=== PATIENT | male | born 1985 | race Caucasian/White ===

== ENCOUNTER 2019-07-12 08:28 | Emergency (ER) | payer OTHER ==
[~2019-07-12] VITALS: Ht 182.9 cm; Wt 111.4 kg
[2019-07-12 09:04] LABS: BASO # 0.1 10^3/uL (0.0-0.2); BASO % 1.3 % (0.0-1.0); EOS # 0.1 10^3/uL (0.0-0.5); EOS % 1.4 % (0.0-3.0); HEMATOCRIT 43.4 % (42.0-52.0); HEMOGLOBIN 13.8 g/dl (13.5-17.5); LYMPH # 1.8 10^3/uL (1.5-5.0); LYMPH % 20.7 % (24.0-44.0); MEAN CORPUSCULAR HEMOGLOBIN 27.5 pg (27.0-33.0); MEAN CORPUSCULAR HGB CONC 31.8 g/dl (32.0-36.5); MEAN CORPUSCULAR VOLUME 86.5 fl (80.0-96.0); MONO # 0.5 10^3/uL (0.0-0.8); MONO % 5.4 % (0.0-5.0); NEUTROPHILS # 6.1 10^3/uL (1.5-8.5); NEUTROPHILS % 70.7 % (36.0-66.0); PLATELET COUNT, AUTOMATED 286 10^3/uL (150-450); RED BLOOD COUNT 5.02 10^6/uL (4.30-6.10); WHITE BLOOD COUNT 8.6 10^3/uL (4.0-10.0)
[2019-07-12 09:34] LABS: BLOOD UREA NITROGEN 14 MG/DL (7-18); CALCIUM LEVEL 8.9 MG/DL (8.5-10.1); CARBON DIOXIDE LEVEL 28 MEQ/L (21-32); CHLORIDE LEVEL 107 MEQ/L (98-107); CK-MB VALUE MASS 1.3 NG/ML (<3.6); CPK CREATINE PHOSPHOKINASE 230 U/L (39-308); CREATININE FOR GFR 1.04 MG/DL (0.70-1.30); GLOMERULAR FILTRATION RATE > 60.0 (>60); GLUCOSE, FASTING 105 MG/DL (70-100); MB/CK RELATIVE INDEX 0.57 (< OR =4); POTASSIUM SERUM 4.6 MEQ/L (3.5-5.1); SODIUM LEVEL 140 MEQ/L (136-145); TROPONIN I < 0.02 NG/ML (< 0.10)
[2019-07-12] MEDS ORDERED: MECLIZINE 25 MG TABLET PO ONE (10:00)
[2019-07-12] MEDS ORDERED: NS 1,000 ML IV ONE ×2 (10:00→12:45)
[2019-07-12 10:02] LABS: ALBUMIN 3.8 GM/DL (3.2-5.2); ALT/SGPT 34 U/L (12-78); BILIRUBIN,TOTAL 0.4 MG/DL (0.2-1.0); LIPASE 79 U/L (73-393); TOTAL PROTEIN 7.5 GM/DL (6.4-8.2)
--- NOTE | 2019-07-12 10:15 | REP ---
CHEST, TWO VIEWS: There is no evidence of acute infiltrate. No pleural effusion is seen. The heart is normal in size. The mediastinal silhouette is unremarkable. The visualized osseous structures are intact. IMPRESSION: No acute pulmonary disease. Electronically Signed by Fabricio Kebede MD 07/12/2019 04:20 P
--- NOTE | 2019-07-12 10:35 | REP ---
CT brain: 07/12/2019. Indication: Ataxia. Stroke. Comparison: None. Technique: Unenhanced axial CT images of the brain were obtained from skull base to vertex. Findings: There is no acute intracranial hemorrhage, acute cortical infarction, mass effect, hydrocephalus or significant fluid within the visualized paranasal sinuses/mastoid air cells. Impression: No acute intracranial process. Electronically Signed by Raad Alvarez DO 07/12/2019 10:27 A
--- NOTE | 2019-07-12 13:35 | REP ---
MRI brain and intracranial MRA: 07/12/2019. Vacation: Ataxia. Stroke. Comparison: None. Technique: Multiplanar short and long TR sequences of the brain were performed as well as 3-D [id number] imaging of the intracranial circulation. Findings: There are no areas of restricted diffusion. There is no intracranial mass effect, hydrocephalus or significant hemorrhage. No areas of abnormal signal are present within the brainstem or brain parenchyma. The large intracranial flow voids are unremarkable. The midline structures, and craniocervical junction are also unremarkable. There is no intracranial high-grade stenosis, vessel occlusion, aneurysm or AVM. Impression: No acute intracranial process. Unremarkable brain. No intracranial high-grade stenosis or occlusion. Unremarkable intracranial MRA. Electronically Signed by Raad Alvarez DO 07/12/2019 01:27 P
--- NOTE | 2019-07-12 13:35 | REP ---
MRI brain and intracranial MRA: 07/12/2019. Vacation: Ataxia. Stroke. Comparison: None. Technique: Multiplanar short and long TR sequences of the brain were performed as well as 3-D [id number] imaging of the intracranial circulation. Findings: There are no areas of restricted diffusion. There is no intracranial mass effect, hydrocephalus or significant hemorrhage. No areas of abnormal signal are present within the brainstem or brain parenchyma. The large intracranial flow voids are unremarkable. The midline structures, and craniocervical junction are also unremarkable. There is no intracranial high-grade stenosis, vessel occlusion, aneurysm or AVM. Impression: No acute intracranial process. Unremarkable brain. No intracranial high-grade stenosis or occlusion. Unremarkable intracranial MRA. Electronically Signed by Raad Alvarez DO 07/12/2019 01:26 P
[2019-07-12] MEDS ORDERED: MECL-68 PO (14:01)
[2019-07-12] MEDS ORDERED: ZOFR4TAB16 PO (14:02)
[2019-07-12 14:15] VITALS: BP 125/73
--- NOTE | 2019-07-13 21:56 | ECGEPIP ---
[facility] - ED Test Date: 2019-07-12 Pat Name: NATALIA OLSEN Department: Room: - Gender: Male Clinical Social Work Aide: TC : 1985 Requested By: REY Bai Order Number: [id number] Reading MD: Mare Matt Measurements Intervals Ducor Rate: 55 P: 56 RI: 207 QRS: 29 QRSD: 104 T: 8 QT: 433 QTc: 415 Interpretive Statements SINUS BRADYCARDIA EARLY REPOLARIZATION NO PRIOR Electronically Signed on 07-13-2019 21:56:17 EST by Mare Matt
== END 2019-07-12 14:18 | disposition home or self-care (01) ==
LOC: EDBD 08:28 → M ED 08:28
DX: R42 Dizziness and giddiness (principal); R11.2 Nausea with vomiting, unspecified; R00.1 Bradycardia, unspecified

== ENCOUNTER 2020-09-27 15:21 | Inpatient (IN) | payer OTHER ==
[~2020-09-27] VITALS: Ht 182.9 cm; Wt 126.1 kg
[~2020-09-27 15:21] MED LIST: MECL1TAB31 PO; ZOFR4TAB16 PO
[2020-09-27 16:23] LABS: HEMATOCRIT 44.7 % (42.0-52.0); HEMOGLOBIN 14.1 g/dl (13.5-17.5); MEAN CORPUSCULAR HEMOGLOBIN 27.3 pg (27.0-33.0); MEAN CORPUSCULAR HGB CONC 31.5 g/dl (32.0-36.5); MEAN CORPUSCULAR VOLUME 86.6 fl (80.0-96.0); PLATELET COUNT, AUTOMATED 337 10^3/uL (150-450); RED BLOOD COUNT 5.16 10^6/uL (4.30-6.10); WHITE BLOOD COUNT 7.3 10^3/uL (4.0-10.0)
[2020-09-27 16:44] LABS: AMPHETAMINES LEVEL URINE NEGATIVE (NEGATIVE); BARBITURATES URINE NEGATIVE (NEGATIVE); BENZODIAZEPINES URINE NEGATIVE (NEGATIVE); CANNABINOIDS URINE NEGATIVE (NEGATIVE); COCAINE METABOLITE URINE NEGATIVE (NEGATIVE); METHADONE URINE NEGATIVE (NEGATIVE); OPIATES URINE NEGATIVE (NEGATIVE); PHENCYCLIDINE URINE NEGATIVE (NEGATIVE)
[2020-09-27 17:01] LABS: ACETAMINOPHEN LEVEL < 2.0 UG/ML (10.0-30.0); ALT/SGPT 55 U/L (12-78); BILIRUBIN,DIRECT 0.1 MG/DL (0.0-0.2); BILIRUBIN,TOTAL 0.3 MG/DL (0.2-1.0); BLOOD UREA NITROGEN 15 MG/DL (7-18); CALCIUM LEVEL 9.1 MG/DL (8.5-10.1); CARBON DIOXIDE LEVEL 26 MEQ/L (21-32); CHLORIDE LEVEL 107 MEQ/L (98-107); CREATININE FOR GFR 1.09 MG/DL (0.70-1.30); ETHYL ALCOHOL (ETHANOL) < 0.003 % (0.000-0.010); GLOMERULAR FILTRATION RATE > 60.0 (>60); GLUCOSE, FASTING 100 MG/DL (70-100); POTASSIUM SERUM 4.1 MEQ/L (3.5-5.1); SALICYLATE LEVEL < 1.7 MG/DL (5.0-30.0); SODIUM LEVEL 141 MEQ/L (136-145); TOTAL PROTEIN 7.9 GM/DL (6.4-8.2)
[2020-09-27] MEDS ORDERED: ACETAMINOPHEN TAB 650MG DOSE (2X325MG) PO PRN (19:25)
[2020-09-27] MEDS ORDERED: MOM 30ML SUSPENSION UDC PO PRN (19:25)
[2020-09-27] MEDS ORDERED: MAALOX 30 ML SUSP *UDC PO PRN (19:25)
[2020-09-27 20:47] LABS: RSV AMPLIFICATION NEGATIVE (NEGATIVE)
[2020-09-27 21:27] VITALS: BP 140/87
[2020-09-28 06:28] VITALS: BP 136/74
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
[2020-09-28 17:17] VITALS: BP 142/76
[2020-09-29 05:54] VITALS: BP 132/68
[2020-09-29 16:41] VITALS: BP 117/71
--- NOTE | 2020-09-29 16:55 | MHIPNPDOC ---
[facility] Progress Note Progress Note DATE OF SERVICE: 09/29/20 HISTORY: 35-year-old male with depression and marital difficulties. VITAL SIGNS: See below. NEW TEST RESULTS: None. CURRENT MEDICATIONS: See below. MENTAL STATUS EXAMINATION: Patient is a, 35-year old male, who is having marital difficulties and became depressed and suspicious. Speech: Is within normal limits. Language skills . No gross disturbance Thought processes including:. No gross disturbance. Thought content: Thinking about his marriage. Abstract reasoning, and computation: Able to abstract and compute. Description of associations: No loose association. Description of abnormal or psychotic thoughts:. No psychotic thought. Judgment: Good. Insight:. Good. Orientation: 3. Recent and remote memory:. No disturbance. Attention span and concentration:. No disturbance. Language:. No gross disturbance. Fund of knowledge: Reasonable. Mood: Good. Affect: BRight. DIAGNOSES: 1. Situational depression. 2., Marital stressors. 3. ASSESSMENT: As above MANAGEMENT PLAN:. Plan discharge. TIME SPENT: 35 minutes. Vital Signs Vital Signs Date Time Temp Pulse Resp B/P (MAP) Pulse Ox O2 Delivery O2 Flow Rate FiO2 09/29/20 16:41 97.2 88 18 117/71 (86) 97 Room Air Current Medications Current Medications Medications (Trade) Dose Ordered Sig/Wilmer Route PRN Reason Start Time Stop Time Status Last Admin Dose Admin Acetaminophen (Tylenol Tab) 650 mg Q6HP PRN PO HEADACHE or DISCOMFORT 09/27/20 19:25 Al Hydrox/Mg Hydrox/Simethicone (Mylanta) 30 ml Q4HP PRN PO HEARTBURN/INDIGESTION 09/27/20 19:25 Home Med (Med Rec Complete!) ASDIRECTED XX 09/27/20 18:00 09/27/20 18:00 DC Magnesium Hydroxide (Milk Of Magnesia) 30 ml DAILYPRN PRN PO CONSTIPATION 09/27/20 19:25 Trazodone HCl (Desyrel) 50 mg QHSP PRN PO INSOMNIA 09/27/20 19:25 Allergies Coded Allergies: No Known Allergies (Unverified , 07/12/19) NATALIA HERNANDEZ MD Sep 29, 2020 16:55
[2020-09-30 06:31] VITALS: BP 127/77
[2020-09-30 16:17] VITALS: BP 130/74
--- NOTE | 2020-09-30 19:22 | MHIPNPDOC ---
[facility] Progress Note Progress Note DATE OF SERVICE: 09/30/20 HISTORY: 35-year-old male with depression and marital difficulties. VITAL SIGNS: See below. NEW TEST RESULTS: None. CURRENT MEDICATIONS: See below. MENTAL STATUS EXAMINATION: Patient is a, 35-year old male, who is having marital difficulties and became depressed and suspicious. Speech: normal in r/t/v, spontaneous and fluent Language skills . No gross disturbance Thought processes including: Linear and coherent Thought content: Reports anxious thoughts, depressive thoughts, he denies suicidal ideation at this time. Abstract reasoning, and computation: Able to abstract and compute. Description of associations: No loose association. Description of abnormal or psychotic thoughts:. Denies thought delusions, denies TAV hallucinations, he is not responding to internal stimuli Judgment: Good. Insight:. Good. Orientation: 3. Recent and remote memory:. No disturbance. Attention span and concentration:. No disturbance. Language:. No gross disturbance. Fund of knowledge: Reasonable. Mood: " Relaxed and good." Affect: Bright. DIAGNOSES: 1. Situational depression. 2. Marital stressors. ASSESSMENT: As above MANAGEMENT PLAN:. Continue with current treatment plan, he seems to be ready for discharge. TIME SPENT: 35 minutes. Vital Signs Vital Signs Date Time Temp Pulse Resp B/P (MAP) Pulse Ox O2 Delivery O2 Flow Rate FiO2 09/30/20 16:17 98.8 79 16 130/74 (92) 94 Room Air Current Medications Current Medications Medications (Trade) Dose Ordered Sig/Wilmer Route PRN Reason Start Time Stop Time Status Last Admin Dose Admin Acetaminophen (Tylenol Tab) 650 mg Q6HP PRN PO HEADACHE or DISCOMFORT 09/27/20 19:25 Al Hydrox/Mg Hydrox/Simethicone (Mylanta) 30 ml Q4HP PRN PO HEARTBURN/INDIGESTION 09/27/20 19:25 Home Med (Med Rec Complete!) ASDIRECTED XX 09/27/20 18:00 09/27/20 18:00 DC Magnesium Hydroxide (Milk Of Magnesia) 30 ml DAILYPRN PRN PO CONSTIPATION 09/27/20 19:25 Trazodone HCl (Desyrel) 50 mg QHSP PRN PO INSOMNIA 09/27/20 19:25 Allergies Coded Allergies: No Known Allergies (Unverified , 07/12/19) KRAIG MANNING MD Sep 30, 2020 19:22
[2020-10-01 06:37] VITALS: BP 120/60
--- NOTE | 2020-10-01 15:07 | MHIPNPDOC ---
[facility] Progress Note Progress Note DATE OF SERVICE: 10/01/20 HISTORY: 35-year-old male with depression and marital difficulties. VITAL SIGNS: See below. NEW TEST RESULTS: None. CURRENT MEDICATIONS: See below. MENTAL STATUS EXAMINATION: Patient is a, 35-year old male, who is having marital difficulties and became depressed and suspicious. Speech: normal in r/t/v, spontaneous and fluent Language skills . No gross disturbance Thought processes including: Linear and coherent Thought content: Denies anxious or depressive thoughts, he denies suicidal ideation at this time. Abstract reasoning, and computation: Able to abstract and compute. Description of associations: No loose association. Description of abnormal or psychotic thoughts:. Denies thought delusions, denies TAV hallucinations, he is not responding to internal stimuli Judgment: Good. Insight:. Good. Orientation: 3. Recent and remote memory:. No disturbance. Attention span and concentration:. No disturbance. Language:. No gross disturbance. Fund of knowledge: Reasonable. Mood: "Good." Affect: Bright. DIAGNOSES: 1. Situational depression. 2. Marital stressors. ASSESSMENT: As above MANAGEMENT PLAN: Continue with current treatment plan, he is having a good response to medications, he seems to be ready for discharge. TIME SPENT: 35 minutes. Vital Signs Vital Signs Date Time Temp Pulse Resp B/P (MAP) Pulse Ox O2 Delivery O2 Flow Rate FiO2 10/01/20 06:37 97.7 60 18 120/60 (80) 96 Room Air Current Medications Current Medications Medications (Trade) Dose Ordered Sig/Wilmer Route PRN Reason Start Time Stop Time Status Last Admin Dose Admin Acetaminophen (Tylenol Tab) 650 mg Q6HP PRN PO HEADACHE or DISCOMFORT 09/27/20 19:25 Al Hydrox/Mg Hydrox/Simethicone (Mylanta) 30 ml Q4HP PRN PO HEARTBURN/INDIGESTION 09/27/20 19:25 Home Med (Med Rec Complete!) ASDIRECTED XX 09/27/20 18:00 09/27/20 18:00 DC Magnesium Hydroxide (Milk Of Magnesia) 30 ml DAILYPRN PRN PO CONSTIPATION 09/27/20 19:25 Trazodone HCl (Desyrel) 50 mg QHSP PRN PO INSOMNIA 09/27/20 19:25 Allergies Coded Allergies: No Known Allergies (Unverified , 07/12/19) KRAIG MANNING MD 7, 2021 15:07
[2020-10-01 16:15] VITALS: BP 127/73
[2020-10-01] MEDS: traZODone 50 MG TAB PO PRN (22:13)
[2020-10-02 06:52] VITALS: BP 124/81
--- NOTE | 2020-10-02 14:46 | MHIPNPDOC ---
[facility] Progress Note Progress Note DATE OF SERVICE: 10/02/20 HISTORY: 35-year-old male with depression due to marital difficulties. VITAL SIGNS: See below. NEW TEST RESULTS: None. CURRENT MEDICATIONS: See below. MENTAL STATUS EXAMINATION: Patient is a 35-year-old male in improved mood. Speech: Is. No gross disturbance. Language skills are intact. Thought processes including:. No gross disturbance. Thought content: As above. Abstract reasoning, and computation: Present. Description of associations:. No loose association. Description of abnormal or psychotic thoughts:. No psychotic thought. Judgment: Intact. Insight: Fair. Orientation: 3. Recent and remote memory: Intact. Attention span and concentration:. No disturbance. Language:. No disturbance. Fund of knowledge: Reasonable. Mood: Improved. Affect: bright. DIAGNOSES: 1. Situational depression. 2., Marital stressors. 3., None. ASSESSMENT: As above MANAGEMENT PLAN: Discharge plan. TIME SPENT:. 35 minutes. Vital Signs Vital Signs Date Time Temp Pulse Resp B/P (MAP) Pulse Ox O2 Delivery O2 Flow Rate FiO2 10/02/20 06:52 97.9 65 16 124/81 (95) 98 Room Air Current Medications Current Medications Medications (Trade) Dose Ordered Sig/Wilmer Route PRN Reason Start Time Stop Time Status Last Admin Dose Admin Acetaminophen (Tylenol Tab) 650 mg Q6HP PRN PO HEADACHE or DISCOMFORT 09/27/20 19:25 Al Hydrox/Mg Hydrox/Simethicone (Mylanta) 30 ml Q4HP PRN PO HEARTBURN/INDIGESTION 09/27/20 19:25 Home Med (Med Rec Complete!) ASDIRECTED XX 09/27/20 18:00 09/27/20 18:00 DC Magnesium Hydroxide (Milk Of Magnesia) 30 ml DAILYPRN PRN PO CONSTIPATION 09/27/20 19:25 Trazodone HCl (Desyrel) 50 mg QHSP PRN PO INSOMNIA 09/27/20 19:25 10/01/20 22:13 Allergies Coded Allergies: No Known Allergies (Unverified , 07/12/19) NATALIA HERNANDEZ MD Oct 02, 2020 14:45
[2020-10-02 17:54] VITALS: BP 120/71
[2020-10-02] MEDS: traZODone 50 MG TAB PO PRN (22:26)
[2020-10-03 06:48] VITALS: BP 128/71
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
== END 2020-10-03 11:50 | disposition home or self-care (01) | DRG 881 ==
LOC: M ED 15:21 → M ED INP 19:25 → M PSY 21:20
PROVIDERS: ADMIT Psychiatry & Neurology Child & Adolescent Psychiatry; ATTEND Psychiatry & Neurology Child & Adolescent Psychiatry
DX: F43.21 Adjustment disorder with depressed mood (principal); Z63.0 Problems in relationship with spouse or partner; Z20.822 Contact with and (suspected) exposure to COVID-19

== ENCOUNTER 2021-03-05 08:40 | Emergency (ER) | payer OTHER ==
[~2021-03-05] VITALS: Ht 182.9 cm; Wt 130.3 kg
[2021-03-05] MEDS ORDERED: dexameTHASONE 20MG/5ML VIAL (J1100 PER 1MG) IV ONE (09:50)
[2021-03-05 10:35] LABS: BASO # 0.1 10^3/uL (0.0-0.2); BASO % 0.9 % (0.0-1.0); EOS # 0.2 10^3/uL (0.0-0.5); EOS % 1.6 % (0.0-3.0); HEMOGLOBIN 14.8 g/dl (13.5-17.5); LYMPH # 2.2 10^3/uL (1.5-5.0); LYMPH % 18.7 % (24.0-44.0); MEAN CORPUSCULAR HEMOGLOBIN 28.1 pg (27.0-33.0); MEAN CORPUSCULAR HGB CONC 32.9 g/dl (32.0-36.5); MEAN CORPUSCULAR VOLUME 85.4 fl (80.0-96.0); MONO # 1.1 10^3/uL (0.0-0.8); MONO % 9.4 % (2.0-8.0); NEUTROPHILS % 69.1 % (36.0-66.0); PLATELET COUNT, AUTOMATED 323 10^3/uL (150-450); RED BLOOD COUNT 5.27 10^6/uL (4.30-6.10); WHITE BLOOD COUNT 11.5 10^3/uL (4.0-10.0)
[2021-03-05 11:05] LABS: BLOOD UREA NITROGEN 10 MG/DL (7-18); CARBON DIOXIDE LEVEL 27 MEQ/L (21-32); CHLORIDE LEVEL 104 MEQ/L (98-107); CREATININE FOR GFR 1.05 MG/DL (0.70-1.30); GLOMERULAR FILTRATION RATE > 60.0 (>60); GLUCOSE, FASTING 128 MG/DL (70-100); POTASSIUM SERUM 4.2 MEQ/L (3.5-5.1); SODIUM LEVEL 139 MEQ/L (136-145)
[2021-03-05 11:06] LABS: ALBUMIN 3.9 GM/DL (3.2-5.2); ALT/SGPT 55 U/L (12-78); BILIRUBIN,DIRECT 0.2 MG/DL (0.0-0.2); BILIRUBIN,TOTAL 0.7 MG/DL (0.2-1.0); C REACTIVE PROTEIN QUANTITATIV 6.68 MG/DL (0.00-0.30); CALCIUM LEVEL 9.7 MG/DL (8.5-10.1); TOTAL PROTEIN 8.3 GM/DL (6.4-8.2)
[2021-03-05] MEDS ORDERED: ISOVUE-370 76% 100ML VIAL As Ordered ONE (11:10)
[2021-03-05] MEDS ORDERED: NS 1,000 ML IV ONE (11:20)
--- NOTE | 2021-03-05 11:52 | REPVR ---
PROCEDURE INFORMATION: Exam: CT Maxillofacial With Contrast, Sinus Exam date and time: 03/05/2021 9:55 AM Age: 35 years old Clinical indication: Mass, lump, or swelling; Other: Left mastoid erythema, swelling, tender. Left oe ? mastoidit TECHNIQUE: Imaging protocol: CT Maxillofacial with intravenous contrast. Focus on the sinuses. Radiation optimization: All CT scans at this facility use at least one of these dose optimization techniques: automated exposure control; mA and/or kV adjustment per patient size (includes targeted exams where dose is matched to clinical indication); or iterative reconstruction. Contrast material: ISOVUE 370; Contrast volume: 75 ml; Contrast route: INTRAVENOUS (IV); COMPARISON: MRI-Brain without Contrast 07/12/2019 12:45 PM FINDINGS: Frontal sinuses: Normal. No air-fluid levels. Ethmoid air cells: Normal. No air-fluid levels. Sphenoid sinuses: Normal. No air-fluid levels. Maxillary sinuses: Normal. No air-fluid levels. Ostiomeatal units are patent. Nasal cavity/Septum: Unremarkable. Orbital cavity: Orbits are normal. Globes are unremarkable. Bones/joints: No acute fracture seen. No evidence of osteomyelitis. Soft tissues: See "Submandibular/Parotid glands" finding. Auditory system: Partial opacification of the right middle ear cavity, namely mesotympanum. Mastoid air cells: No significant mastoid effusion. Submandibular/Parotid glands: There is right periauricular, parotid and periparotid soft tissue edema. No discrete soft tissue abscess identified. Soft tissue edema effaces the right EAC. Mildly enlarged right periauricular and periparotid lymph nodes, likely reactive. IMPRESSION: 1. Findings consistent with right otitis externa and otitis media. 2. Findings consistent with right parotiditis. 3. No evidence of soft tissue abscess. Electronically signed by: Vianca Hurtado On 03/05/2021 11:51:49 AM
[2021-03-05 11:59] LABS: ERYTHROCYTE SEDIMENTATION RATE 41 mm/hr (0-15)
[2021-03-05] MEDS ORDERED: AMPICILLIN SOD/SULBACTAM SOD 3 GM in D5W MINI-BAG PLUS 100 ML IV ONE (12:00)
[2021-03-05 13:21] VITALS: BP 136/78
[2021-03-05] MEDS ORDERED: PRED20TA PO (13:26)
[2021-03-05] MEDS ORDERED: AUGM875T28 PO (13:26)
[2021-03-05] MEDS ORDERED: CIPR7.5D5 AD (13:26)
[2021-03-05] MEDS ORDERED: SALA1TAB PO (13:26)
== END 2021-03-05 13:39 | disposition home or self-care (01) ==
LOC: M ED 08:40
DX: H60.91 Unspecified otitis externa, right ear (principal)
CPT/HCPCS: 70487; 80048; 80076; 83605; 85025; 85652; 86140; 96361; 96365; 96375; 99283; J1100; Q9967

== ENCOUNTER 2022-03-13 13:03 | Emergency (ER) | payer OTHER ==
[~2022-03-13] VITALS: Ht 182.9 cm; Wt 142.1 kg
[~2022-03-13 13:03] MED LIST changes: +AUGM875T28 PO; +CIPR7.5D5 AD; +PRED20TA PO; +SALA1TAB PO
[2022-03-13] MEDS ORDERED: TRAZ-252 (13:13)
[2022-03-13] MEDS ORDERED: FLUO20CA22 (13:14)
[2022-03-13] MEDS ORDERED: ATOR40TA75 (13:14)
[2022-03-13] MEDS ORDERED: SILD25TA2 (13:14)
[2022-03-13] MEDS ORDERED: LISI5TAB11 (13:14)
[2022-03-13] MEDS ORDERED: AUGM500T34 PO (13:14)
[2022-03-13] MEDS ORDERED: KETOROLAC 30 MG/ML 1ML VIAL IV ONE (14:40)
[2022-03-13 15:02] LABS: BASO # 0.1 10^3/uL (0.0-0.2); BASO % 1.2 % (0.0-1.0); EOS # 0.4 10^3/uL (0.0-0.5); HEMATOCRIT 44.7 % (42.0-52.0); HEMOGLOBIN 14.2 g/dl (13.5-17.5); LYMPH # 3.4 10^3/uL (1.5-5.0); LYMPH % 27.8 % (24.0-44.0); MEAN CORPUSCULAR HEMOGLOBIN 27.4 pg (27.0-33.0); MEAN CORPUSCULAR HGB CONC 31.8 g/dl (32.0-36.5); MEAN CORPUSCULAR VOLUME 86.3 fl (80.0-96.0); MONO # 1.3 10^3/uL (0.0-0.8); MONO % 10.7 % (2.0-8.0); NEUTROPHILS # 6.8 10^3/uL (1.5-8.5); NEUTROPHILS % 56.6 % (36.0-66.0); PLATELET COUNT, AUTOMATED 392 10^3/uL (150-450); RED BLOOD COUNT 5.18 10^6/uL (4.30-6.10); WHITE BLOOD COUNT 12.1 10^3/uL (4.0-10.0)
[2022-03-13] MEDS ORDERED: CIPRODEX OTIC SUSP 7.5ML AD STA (15:03)
[2022-03-13] MEDS ORDERED: ISOVUE-370 76% 100ML VIAL As Ordered ONE (15:38)
[2022-03-13 15:58] LABS: ERYTHROCYTE SEDIMENTATION RATE 63 mm/hr (0-15)
[2022-03-13 17:45] VITALS: BP 133/79
[2022-03-13] MEDS ORDERED: CIPR0.2S OTIC (18:01)
== END 2022-03-13 18:17 | disposition home or self-care (01) ==
LOC: M ED 13:03
DX: H66.91 Otitis media, unspecified, right ear (principal); H60.91 Unspecified otitis externa, right ear; R22.0 Localized swelling, mass and lump, head; D37.030 Neoplasm of uncertain behavior of the parotid salivary glands; R42 Dizziness and giddiness; Z79.899 Other long term (current) drug therapy
CPT/HCPCS: 70487; 80047; 85025; 85652; 86140; 96374; 99283; J1885; Q9967

== ENCOUNTER → 2022-04-23 | Outpatient (CLI) | payer OTHER ==
[~2022-04-23] MED LIST changes: +ATOR40TA75; +AUGM500T34 PO; +CIPR0.2S OTIC; +FLUO20CA22; +LIDOCAINE 1% MDV 20ML VIAL As Ordered ONE; +LISI5TAB11; +SILD25TA2; +TRAZ-252
[2022-04-23 10:00] VITALS: BP 140/90
== END ==
LOC: M IRPRO 09:11
PROVIDERS: ATTEND Physician Assistant Medical
DX: R22.1 Localized swelling, mass and lump, neck (principal)

== ENCOUNTER 2024-02-12 22:09 | Emergency (ER) | payer OTHER ==
[~2024-02-12] VITALS: Ht 185.4 cm; Wt 159.1 kg
[~2024-02-12 22:09] MED LIST changes: +FLUO-365; -FLUO20CA22; -LIDOCAINE 1% MDV 20ML VIAL As Ordered ONE; +MECL-209 PO; -MECL1TAB31 PO
[2024-02-12 22:23] VITALS: TEMP 97.7
[2024-02-12 22:48] LABS: BASO # 0.2 10^3/uL (0.0-0.2); BASO % 1.2 % (0.0-1.0); EOS # 0.3 10^3/uL (0.0-0.5); EOS % 2.7 % (0.0-3.0); HEMATOCRIT 45.4 % (42.0-52.0); HEMOGLOBIN 14.7 g/dl (13.5-17.5); LYMPH # 4.1 10^3/uL (1.5-5.0); MEAN CORPUSCULAR HEMOGLOBIN 27.6 pg (27.0-33.0); MEAN CORPUSCULAR HGB CONC 32.4 g/dl (32.0-36.5); MEAN CORPUSCULAR VOLUME 85.2 fl (80.0-96.0); MONO % 7.5 % (2.0-8.0); NEUTROPHILS # 7.2 10^3/uL (1.5-8.5); NEUTROPHILS % 56.2 % (36.0-66.0); PLATELET COUNT, AUTOMATED 353 10^3/uL (150-450); RED BLOOD COUNT 5.33 10^6/uL (4.30-6.10); WHITE BLOOD COUNT 12.8 10^3/uL (4.0-10.0)
[2024-02-12] MEDS: ASPIRIN 81MG CHEW TABLET PO ONE (23:00)
[2024-02-12 23:08] LABS: CK-MB VALUE MASS 3.7 NG/ML (<3.6)
[2024-02-12 23:09] LABS: BLOOD UREA NITROGEN 12 MG/DL (9-23); CALCIUM LEVEL 9.7 MG/DL (8.5-10.1); CARBON DIOXIDE LEVEL 28 MMOL/L (20-31); CHLORIDE LEVEL 102 MMOL/L (98-107); GLOMERULAR FILTRATION RATE > 60.0 (>60); GLUCOSE, FASTING 116 MG/DL (60-100); POTASSIUM SERUM 4.1 MMOL/L (3.5-5.1); SODIUM LEVEL 135 MMOL/L (136-145)
[2024-02-12 23:11] LABS: CPK CREATINE PHOSPHOKINASE 477 U/L (46-171); MB/CK RELATIVE INDEX 0.77 (< OR =4)
[2024-02-13 00:38] LABS: CK-MB VALUE MASS 3.6 NG/ML (<3.6)
[2024-02-13 00:39] VITALS: O2SAT 95
[2024-02-13 00:42] LABS: MB/CK RELATIVE INDEX 0.85 (< OR =4)
[2024-02-13 00:45] VITALS: BP 135/82
== END 2024-02-13 12:58 | disposition home or self-care (01) ==
LOC: M ED 22:09
DX: R07.9 Chest pain, unspecified (principal); I49.40 Unspecified premature depolarization; E11.9 Type 2 diabetes mellitus without complications; E66.9 Obesity, unspecified; Z79.02 Long term (current) use of antithrombotics/antiplatelets; Z79.811 Long term (current) use of aromatase inhibitors; Z79.899 Other long term (current) drug therapy

== ENCOUNTER 2024-05-08 07:58 | Emergency (ER) | payer OTHER ==
[~2024-05-08] VITALS: Ht 182.9 cm; Wt 161.7 kg
[2024-05-08 08:05] VITALS: BP 132/87; TEMP 97.1; O2SAT 96
[2024-05-08] MEDS ORDERED: 12 H0.05 (08:44)
== END 2024-05-08 08:52 | disposition home or self-care (01) ==
LOC: M ED 07:58
DX: R04.0 Epistaxis (principal); Z79.899 Other long term (current) drug therapy

== ENCOUNTER 2024-08-02 06:05 | Emergency (ER) | payer OTHER ==
[~2024-08-02] VITALS: Ht 182.9 cm; Wt 168.9 kg
[~2024-08-02 06:05] MED LIST changes: +12 H0.05
[2024-08-02] MEDS: AUGMENTIN 875 MG TAB PO ONE (08:51)
[2024-08-02] MEDS: IBUPROFEN 800 MG TAB PO ONE (08:52)
[2024-08-02] MEDS ORDERED: IBUP-1022 PO (09:11)
[2024-08-02] MEDS ORDERED: CIPR0.3S37 AS (09:11)
[2024-08-02] MEDS ORDERED: AMOX875T2 PO (09:11)
[2024-08-02 09:18] VITALS: BP 131/91; TEMP 97.9; O2SAT 95
== END 2024-08-02 09:24 | disposition home or self-care (01) ==
LOC: M ED 06:05
DX: H60.92 Unspecified otitis externa, left ear (principal); E11.9 Type 2 diabetes mellitus without complications; G47.33 Obstructive sleep apnea (adult) (pediatric); Z79.2 Long term (current) use of antibiotics; Z79.1 Long term (current) use of non-steroidal anti-inflammatories (NSAID); Z79.899 Other long term (current) drug therapy